=== PATIENT | male | born 1960 | race Caucasian/White ===

== ENCOUNTER → 2016-11-22 | Day surgery (SDC) | payer OTHER ==
[~2016-11-22] MED LIST: FURO40TA4 PO; LACT20SO PO; PANT40TA3 PO; POTA20TA82 PO; PROP10TA PO; PROPOFOL 0 ML IV ONE; PROPOFOL 20 ML IV ONE; SPIR50TA PO
--- NOTE | 2016-11-22 11:11 | PDOC2 ---
CONSULT Date of Consult Date of Consult DATE: 11/22/16 TIME: 11:08 Reason for Consult Reason for Consult: Hep C/cirrhosis/hx varices Identification/Chief Complaint Chief Complaint 56 year old male seen with above history for varices recheck.. He had banding nine years ago. No bleeding has been noted since. Weight and appetite are stable. Risks factors for hep c are positive for tattoos and IV drug use. No family history of liver disease is elicited. He otherwise is without additional complaints. Problems: Past Medical History Hepatobiliary: Cirrhosis, Hep A/B/C (hep c) Past Surgical History Past Surgical History: Appendectomy Family History Family History: Alcohol Abuse Social History <1 pack per day ALCOHOL: occassional Current Medications Current Medications Current Medications Propofol 20 ml @ As Directed STK-MED ONCE IV ; Start 11/22/16 at 11:02; Stop 11/22 at 11:03; Status DC Propofol 20 ml @ As Directed STK-MED ONCE IV ; Start 11/22/16 at 11:02; Stop 11/22 at 11:03; Status DC Active Scripts Active Reported Propranolol Hcl 10 Mg Tablet 10 Mg PO DAILY Lactulose 20 Gm/30 Ml Solution 20 Gm PO Furosemide 40 Mg Tablet 40 Mg PO DAILY Potassium Chloride 20 Meq Tablet.er 20 Meq PO DAILY Aldactone (Spironolactone) 50 Mg Tablet 50 Mg PO DAILY Protonix (Pantoprazole Sodium) 40 Mg Tablet.dr 40 Mg PO DAILY Allergies Allergies: Coded Allergies: carvedilol (Verified Allergy, Intermediate, 11/22/16) metformin (Verified Allergy, Intermediate, 11/22/16) Physical Exam General: Alert Lungs: Clear to auscultation Heart: Regular rate, Normal S1, Normal S2 Abdomen: Normal bowel sounds, Soft, No tenderness, No hepatosplenomegaly Vitals VITALS Vital Signs Date Time Temp Pulse Resp B/P (MAP) Pulse Ox O2 Delivery O2 Flow Rate FiO2 11/22/16 10:14 98.7 64 20 99 98.7 Assessment/Plan Assessment/Plan Cirrhosis- with hep c, and prior variceal banding, EGD to reassess. MAYA CAREY MD Nov 22, 2016 11:11
[2016-11-22 11:48] VITALS: BP 120/60
--- NOTE | 2016-11-25 13:55 | PATHOLOGY ---
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 There is no dysplasia or evidence of malignancy. (JPM:mgr; 11/25/2016) REPORT ELECTRONICALLY SIGNED BY: Gray Alexander M.D. DATE/TIME: 11/25/2016 13:54 * * * * * * * * GROSS PATHOLOGY: Received in formalin labeled "Sidney Carlos, distal esophagus, biopsy," are multiple segments of freitas soft tissue measuring 0.5 cm in aggregate dimensions and ranging from 0.1 to 0.3 cm in maximum dimension. The specimen is submitted entirely in cassette A1. (SNA; 11/22/2016) INITIAL CPT CODE(S): A; 69764 Professional services performed [place] [address] Technical services performed by [facility] at [address] [place] [address]. SPECIMEN(S) RECEIVED: A.Distal esophagus biopsy CLINICAL HISTORY: Hepatitis C, history varices, rule out Campos's PATIENT: SIDNEY CARLOS /AGE: 408/18/1960 (Age: 56) PATIENT #: [id number] ALT CASE #: SPECIMEN COLLECTION DATE: 11/22/2016 SPECIMEN RECEIVED DATE: 11/22/2016 [facility] - [address] [place] [address] - PHONE: [phone] * * * END OF REPORT * * *
== END | disposition home or self-care (01) ==
LOC: EEVIPCON 09:13 → SURG 09:13
PROVIDERS: ATTEND Internal Medicine Gastroenterology
DX: K74.60 Unspecified cirrhosis of liver (principal); K22.8 Other specified diseases of esophagus; K76.6 Portal hypertension; K31.89 Other diseases of stomach and duodenum; M19.90 Unspecified osteoarthritis, unspecified site; Z87.39 Personal history of other diseases of the musculoskeletal system and connective tissue; Z90.49 Acquired absence of other specified parts of digestive tract; Z72.89 Other problems related to lifestyle; Z88.8 Allergy status to other drugs, medicaments and biological substances
CPT/HCPCS: 43239; J2704